=== PATIENT | male | born 1960 | race Caucasian/White ===

== ENCOUNTER → 2017-12-19 | Outpatient (CLI) | payer OTHER ==
[~2017-12-19] MED LIST: ADVA250A INH; CARD120C4 PO; CARV6.25 PO; CEPH500C PO; ENAL2.5T PO; PROT40TA PO; SPIRCAP INH
--- NOTE | 2017-12-25 10:34 | RSPPFT ---
DATE OF PROCEDURE: 12/19/17 COMMENTS: VOLUMES DYNAMIC: FVC and FEV1 severely reduced. STATIC: TLC, FRC moderately reduced; RV normal. FLOWS: FEV1% normal, FEF 25-75 severely reduced. DIFFUSION: Severely reduced. FLOW VOLUME LOOP: Pattern of variable intrathoracic airways obstruction. IMPRESSION: Very severe obstructive ventilatory defect possibly with co-existent restriction although give the very low dynamic lung volumes the RV of 86 may be significant hyperinflation. There is no improvement post-bronchodilator. Airways resistance is severely increased. Diffusion capacity, when corrected for alveolar volume, is actually normal.
== END ==
LOC: HRSP 09:02
PROVIDERS: ATTEND Internal Medicine
DX: J98.4 Other disorders of lung (principal)
CPT/HCPCS: 94060; 94618; 94726; 94729